=== PATIENT | male | born 1950 | race Caucasian/White ===

== ENCOUNTER 2017-06-17 09:26 | Day surgery (SDC) | payer OTHER ==
[2017-06-05 14:06] VITALS: BMI 23.0
--- NOTE | 2017-06-05 14:36 | PAT Medication Instructions ---
Service Date Jun 05, 2017. Current Home Medication List Amphetamine-Dextroamphetamine 20MG (Adderall Xr 20MG), 20 MG PO QAM Aspirin (Aspirin Ec), 81 MG PO QAM Cetirizine (Zyrtec), 10 MG PO HS Lamotrigine (Lamictal), 150 MG PO BID Levothyroxine Sodium (Synthroid), 50 MCG PO QAM Melatonin (Melatonin Maximum Strengt), 10 MG PO HS Montelukast Sodium (Singulair), 10 MG PO HS Quetiapine Fumarate (Seroquel), 200 MG PO HS Rosuvastatin Calcium (Crestor), 10 MG PO QAM Sertraline (Zoloft), 50 MG PO HS Tamsulosin Hcl (Flomax), 0.4 MG PO HS Medication Instructions For Your Scheduled Surgery - Check with surgeon for instructions: Aspirin (Aspirin Ec), 81 MG PO QAM - Hold the following medications the morning of surgery: Amphetamine-Dextroamphetamine 20MG (Adderall Xr 20MG), 20 MG PO QAM - Take the following medications the morning of surgery with a sip of water: Rosuvastatin Calcium (Crestor), 10 MG PO QAM Lamotrigine (Lamictal), 150 MG PO BID Levothyroxine Sodium (Synthroid), 50 MCG PO QAM - Take the following medications as scheduled the night before surgery: Tamsulosin Hcl (Flomax), 0.4 MG PO HS Sertraline (Zoloft), 50 MG PO HS Quetiapine Fumarate (Seroquel), 200 MG PO HS Montelukast Sodium (Singulair), 10 MG PO HS Melatonin (Melatonin Maximum Strengt), 10 MG PO HS Lamotrigine (Lamictal), 150 MG PO BID Cetirizine (Zyrtec), 10 MG PO HS If you have any questions please call us at [phone] or [phone] or [phone]
--- NOTE | 2017-06-05 15:27 | DIAGNOSTIC IMAGING REPORT ---
CHEST 2 VIEWS ROUTINE CLINICAL HISTORY: Preoperative evaluation. COMPARISON STUDY: No previous studies for comparison. FINDINGS: Lung volumes are normal. Lungs are clear. No pneumothorax or pleural effusion is present. Cardiac size is normal. Mediastinal contours are normal. Pulmonary vascularity is normal. IMPRESSION: No acute cardiopulmonary findings. Electronically signed by: Damián Griffin M.D. 06/05/2017 3:26 PM Dictated Date/Time: 06/05/2017 3:08 PM
[2017-06-05 15:39] LABS: BASO % 0.8 %; BASO ABS # 0.06 K/uL (0-0.2); COMPLETE YES; EOS % 2.8 %; HEMATOCRIT 42.4 % (42-52); IG% 0.1 %; LYMPH % 17.3 %; LYMPH ABS # 1.23 K/uL (1.2-3.4); MEAN CELL VOLUME 99.3 fL (80-100); MEAN CORPUSCULAR HEMOGLOBIN 32.6 pg (25-34); MEAN CORPUSCULAR HGB CONC 32.8 g/dl (32-36); MEAN PLATELET VOLUME 10.2 fL (7.4-10.4); MONO % 7.5 %; NEUT % 71.5 %; PLATELET COUNT 202 K/uL (130-400); RED BLOOD COUNT 4.27 M/uL (4.7-6.1); WHITE BLOOD COUNT 7.11 K/uL (4.8-10.8)
[2017-06-05 15:53] LABS: BUN/CREATININE RATIO 18.9 (10-20); CALCIUM 9.3 mg/dl (8.5-10.1); CREATININE 1.15 mg/dl (0.60-1.40); POTASSIUM 4.3 mmol/L (3.5-5.1)
[2017-06-05 16:01] LABS: URINE APPEARANCE CLEAR (CLEAR); URINE BILIRUBIN NEG (NEG); URINE COLOR YELLOW; URINE NITRITE NEG (NEG); URINE SPECIFIC GRAVITY 1.026 (1.000-1.030); UROBILINOGEN NEG (NEG)
[2017-06-05 16:10] LABS: MANUAL MICROSCOPIC REQUIRED? NO; REVIEW REQ? NO
[~2017-06-17] VITALS: Ht 180.3 cm; Wt 75.9 kg
[~2017-06-17 09:26] MED LIST: AMPH20CA3 PO; ASPI81TA28 PO; CETI10TA84 PO; CIPROFLOXACIN / D5W 400 MG IV SCH; CRS/10 PO; LACTATED RINGER'S 1000ML 1,000 ML IV SCH; LAMO100T16 PO; LEVO50TA PO; MELATAB2 PO; MONT1TAB3 PO; QUET1TAB34 PO; SERT25TA PO; TAMS0.4C38 PO
[2017-06-17 10:34] VITALS: BP 138/76; PULSE 63; TEMP 36.6; O2SAT 98; Ht 180.3 cm; Wt 75.9 kg
[2017-06-17] MEDS ORDERED: DEXAMETHASONE SOD INJ 4 MG/ML VIAL ONE (10:45)
[2017-06-17] MEDS ORDERED: ONDANSETRON INJ 2 MG/ML 2 ML VIAL IV PRN (10:45)
[2017-06-17] MEDS ORDERED: ATROPINE SULFATE 0.1 MG/ML 5ML SYR IV PRN (10:45)
[2017-06-17] MEDS ORDERED: LIDOCAINE HCL 2% 2 ML VIAL (20MG/ML) ONE (10:45)
[2017-06-17] MEDS ORDERED: EpHEDrine SULFATE INJ 50 MG/ML AMP IV PRN (10:45)
[2017-06-17] MEDS ORDERED: MIDAZOLAM HCL 1 MG/ML 2ML VIAL ONE (10:45)
[2017-06-17] MEDS ORDERED: ONDANSETRON INJ 2 MG/ML 2 ML VIAL ONE (10:45)
[2017-06-17] MEDS ORDERED: MEPERIDINE HCL 25 MG/ML CARP IV PRN (10:45)
[2017-06-17] MEDS ORDERED: LABETALOL HCL IV 5 MG/ML 20ML IV PRN (10:45)
[2017-06-17] MEDS ORDERED: PROPOFOL IV EMULSION 10 MG/ML 20 ML VIAL IV ONE (10:45)
[2017-06-17] MEDS ORDERED: FENTANYL CITRATE INJ 50 MCG/1 ML 2 ML VIAL ONE (10:45)
[2017-06-17] MEDS ORDERED: FENTANYL CITRATE INJ 50 MCG/1 ML 2 ML VIAL IV PRN (10:45)
[2017-06-17] MEDS ORDERED: HYDROmorphone INJ 1 MG/ML SYR IV PRN (10:45)
--- NOTE | 2017-06-17 11:10 | History & Physical Bridge Note ---
H&P Re-Evaluation Bridge Note: I have examined the patient, reviewed the History & Physical and in the interval since the performance of the History & Physical I have noted the following changes of clinical significance: No changes noted
[2017-06-17] MEDS ORDERED: EpHEDrine SULFATE INJ 50 MG/ML AMP ONE (12:06)
[2017-06-17] MEDS ORDERED: PHENYLEPHRINE HCL INJ 10 MG/ML VIAL ONE (12:06)
[2017-06-17] MEDS ORDERED: PHEN-775 PO (12:44)
[2017-06-17] MEDS ORDERED: CIPR-255 PO (12:44)
[2017-06-17] MEDS ORDERED: OXYC7.5T65 PO (12:44)
--- NOTE | 2017-06-17 12:47 | Discharge Instructions ---
Discharge Instructions Date of Service Jun 17, 2017. Admission Reason for Admission: Benign Prostatic Hypertrophy Discharge Discharge Diagnosis / Problem: BPH Discharge Goals Goal(s): Decrease discomfort, Improve function, Improve disease control, Therapeutic intervention Activity Recommendations Activity Limitations: as noted below Lifting Limitations: no more than 25 pounds, gradually increase as tolerated Exercise/Sports Limitations: rest today, gradually increase as tolerated May Resume Sexual Activity: after follow-up appointment Shower/Bathe: tomorrow (no tub baths with rodriguez in place) . Instructions / Follow-Up Instructions / Follow-Up Rodriguez to gravity drainage as instructed. Catheter removal Jun 18, 2017 at 2:20 PM in [place] Office Follow-up postop appointment as scheduled. Current Hospital Diet Patient's current hospital diet: Discharge Diet Recommended Diet: Regular Diet (good fluid intake) Procedures Procedures Performed: Greenlight Transuretheral Resection of Prostate; Bipolar Fulgaration of Prostate Bleeders Pending Studies Studies pending at discharge: no Medical Emergencies . Who to Call and When: Medical Emergencies: If at any time you feel your situation is an emergency, please call 911 immediately. . Non-Emergent Contact Non-Emergency issues call your: Urologist Call Non-Emergent contact if: you have a fever, temperature is above 101, your pain is not controlled, your pain is worsening, your pain is unusual for you, your pain is concerning you, you have any medication questions . . "Provider Documentation" section prepared by Andrea Salazar. . VTE Core Measure Inpt VTE Proph given/why not?: SCD's [place] Drug Monitoring Program Search Results: patient reviewed within database, no issues identified
--- NOTE | 2017-06-17 12:55 | [facility] Operative Report ---
Operative Report Operative Date Jun 17, 2017. Pre-Operative Diagnosis BPH Post-Operative Diagnosis Same Procedure(s) Performed Greenlight Transuretheral Resection of Prostate; Bipolar Fulguration of Prostate Bleeders Surgeon Dr. Ned Salazar Integration Solution Architect Surgeon(s) None Estimated Blood Loss 40 mL Findings Open fossa after 111K J energy used, some apical bleeders fulgurated using bipolar prostate with resolution. Specimens none per surgeon Drains 20 fr 10 cc H2O Anesthesia GALMA Complication(s) None Disposition Recovery Room / PACU Indications 66-year-old male who is here today for greenlight vaporization of his prostate gland due to refractory voiding symptoms. He's been on a number of medications as an outpatient with persistent symptomatology. Please see H&P for further details. Intravenous ciprofloxacin has been provided for antibiotic coverage. SCDs used for DVT prophylaxis. Informed consent reviewed preoperatively. Description of Procedure Patient was properly identified and brought to the operative suite after identification of appropriate consent of the chart. General anesthesia with laryngeal mask was initiated and patient was prepped and draped in the standard fashion for this procedure. Full timeout procedure was followed. Greenlight laser resectoscope was introduced into the bladder under direct visualization using a visual obturator. This demonstrated an obstructive prostate gland as had been appreciated on office cystoscopy. Using a side fire greenlight laser fiber circumferential vaporization of the prostate gland was performed. Bladder was again surveyed and demonstrated to be free of any mucosal changes, papillary lesions or calculi. Grade 2 trabeculation of the bladder was again noted. Using the laser fiber relaxing incisions were made at the 5 and 7 o' clock position at the bladder neck to avoid future bladder neck contracture. Great care was taken to avoid any injury to the ureteral orifices which were noted to be intact at the end the case. After approximately 111,000 J of energy were used the prostate was noted to be visually unobstructive with excellent aperture. However, at the end of the case some arterial bleeding vessels from the right apical prostate gland were appreciated. These were refractory to the use of the greenlight Laser scope for hemostasis. Therefore a bipolar resectoscope was introduced using a visual obturator and using a bipolar button on fulguration settings these areas were cauterized with excellent resolution of the patient's hematuria. Again, prostate was noted to be hemostatic and visually unobstructive. Bladder was partially distended and resectoscope was removed. 20 [place] Vides catheter was placed with return of clear irrigant and 10 mL of sterile water in the balloon. Belladonna and opium suppository was provided for additional postoperative analgesia and anesthesia was reversed. Patient was sent to the recovery room in stable condition. Follow-up care: Prescription for ciprofloxacin, Percocet and Pyridium were provided for postoperative analgesia. Outpatient trial of void is confirmed. Patient is to contact our service should he note any fevers, chills, nausea, vomiting or other significant difficulties after his surgery. Discharge instructions provided. I attest to the content of the Intraoperative Record and any orders documented therein. Any exceptions are noted below.
[2017-06-17] MEDS ORDERED: PHENAZOPYRIDINE HCL 200 MG TAB PO PRN (13:00)
[2017-06-17] MEDS ORDERED: OXYCODONE/ACETAMINOPHEN 5-325 TAB PO PRN ×2 (13:00)
[2017-06-17 13:35] VITALS: BP 145/72; PULSE 63; TEMP 36.4; O2SAT 98
[2017-06-17] MEDS ORDERED: BELLADONNA/OPIUM SUPP 60 MG SUPP PR ONE (13:54)
[2017-06-17 14:05] VITALS: BP 123/74; PULSE 69; TEMP 36.4; O2SAT 98
--- NOTE | 2017-06-17 14:14 | Anesthesiology Progress Note ---
Anesthesia Post Op Note Date & Time Jun 17, 2017 at 14:14 Vital Signs Pain Intensity: 0 Vital Signs Past 12 Hours Date Time Temp Pulse Resp B/P (MAP) Pulse Ox O2 Delivery O2 Flow Rate FiO2 06/17/17 13:30 36.1 20 129/76 98 Room Air 06/17/17 13:20 36.1 65 20 129/76 98 Room Air 06/17/17 13:10 67 20 125/83 98 Room Air 06/17/17 13:00 65 20 128/80 100 Oxymask 5 06/17/17 12:50 67 16 142/72 100 Oxymask 5 06/17/17 12:46 36.2 70 16 98 Oxymask 5 06/17/17 10:34 36.6 63 18 138/76 (96) 98 Room Air Notes Mental Status: alert / awake / arousable, participated in evaluation Pt Amnestic to Procedure: Yes Nausea / Vomiting: adequately controlled Pain: adequately controlled Airway Patency, RR, SpO2: stable & adequate BP & HR: stable & adequate Hydration State: stable & adequate Anesthetic Complications: no major complications apparent
[2017-06-17 14:35] VITALS: BP 131/71; PULSE 71; TEMP 36.5; O2SAT 98
== END 2017-06-17 14:45 | disposition home or self-care (01) ==
LOC: C.ACU 09:26
PROVIDERS: ATTEND Urology
DX: N40.0 Benign prostatic hyperplasia without lower urinary tract symptoms (principal); R39.15 Urgency of urination; N41.9 Inflammatory disease of prostate, unspecified; F90.9 Attention-deficit hyperactivity disorder, unspecified type; F31.9 Bipolar disorder, unspecified; E03.9 Hypothyroidism, unspecified; G47.33 Obstructive sleep apnea (adult) (pediatric); Z88.1 Allergy status to other antibiotic agents; Z79.82 Long term (current) use of aspirin; Z79.899 Other long term (current) drug therapy; Z82.0 Family history of epilepsy and other diseases of the nervous system; Z82.49 Family history of ischemic heart disease and other diseases of the circulatory system

== ENCOUNTER → 2017-07-10 | Outpatient (CLI) | payer OTHER ==
[~2017-07-10] MED LIST changes: +CIPR-255 PO; -CIPROFLOXACIN / D5W 400 MG IV SCH; -LACTATED RINGER'S 1000ML 1,000 ML IV SCH; +OXYC7.5T65 PO
== END | disposition home or self-care (01) ==
LOC: C.LABSPEC 17:02
PROVIDERS: ATTEND Urology
DX: N40.0 Benign prostatic hyperplasia without lower urinary tract symptoms (principal)